=== PATIENT | female | born 1950 | race Caucasian/White ===

== ENCOUNTER 2019-05-28 10:42 | Emergency (ER) | payer SELFPAY ==
[2019-05-28] VITALS (15 sets, daily range): BP systolic 156–191; BP diastolic 76–94; PULSE 72–82; RESP 12–19; TEMP 36.6; O2SAT 95–100; BMI 38.7
--- NOTE | 2019-05-28 10:54 | DI.CT.S_ITS ---
PROCEDURE: CT HEAD/BRAIN WO CON INDICATIONS: possible stroke, TPA candidate TECHNIQUE: Noncontrast 4.5 mm thick angled axial sections acquired from the foramen magnum to the vertex, with coronal and sagittal reformats. For radiation dose reduction, the following was used: automated exposure control, adjustment of mA and/or kV according to patient size. COMPARISON: [facility], CT, CT ANGIO HEAD AND NECK, 05/28/2019, 10:59. FINDINGS: Image quality: Excellent. CSF spaces: Basal cisterns are patent. No extra-axial fluid collections. The ventricles are symmetric in size and shape. Brain: No intracranial bleeds or masses. There is cerebral volume loss for age, with resultant ventricular and sulcal prominence. There are periventricular and deep white matter chronic small vessel ischemic changes. There is intracranial internal carotid artery atherosclerosis. Skull and face: Calvarium and visualized facial bones appear intact, without suspicious lesions. Sinuses: Visualized sinuses and mastoids are clear. IMPRESSION: No acute intracranial hemorrhage is seen. No contraindication to TPA can be seen. No acute intracranial process is seen. Note: These findings discussed by telephone between Dr. Sliva and Dr. Araiza and 11:29 AM [place] time on May 28, 2019. Dictated by: Marco A Moyer M.D. on 05/28/2019 at 10:39 Approved by: Marco A Moyer M.D. on 05/28/2019 at 10:41
--- NOTE | 2019-05-28 10:56 | ED_ITS ---
HPI - Neuro Symptoms/Deficit General Chief Complaint: Neuro Symptoms/Deficit Stated Complaint: PT having a stroke Time Seen by Provider: 05/28/19 10:54 Source: patient Mode of arrival: Ambulatory Limitations: no limitations History of Present Illness HPI Narrative: Patient is a 69-year-old female who presents with left arm weakness which started 20 minutes prior to arrival. She knows that her left arm was not working as it should, she took a counter. They decided to come to the emergency department. She continues to left arm weakness she can move her shoulder but elbow down is a 3 week. He has no speech difficulty or vision loss. Known prior history of TIA or CVA she states that she only takes vitamins. Related Data Home Medications Medication Instructions Recorded Confirmed cholecalciferol (vitamin D3) 1 tab PO QDAY #0 05/26/17 [Vitamin D3] multivitamin [Multiple Vitamins] 1 tab PO QDAY #0 05/26/17 omega 3-fxk-fjs-fish oil [Fish Oil] 1,000 mg PO #0 05/26/17 Previous Rx's Medication Instructions Recorded amoxicillin-pot clavulanate 875 mg PO BID #20 tab 05/26/17 [Augmentin] codeine-guaifenesin 5 ml PO QHS #60 ml 05/26/17 azithromycin [Zithromax] 250 mg PO SEE INSTRUCTIONS #1 pac 05/27/17 Allergies Allergy/AdvReac Type Severity Reaction Status Date / Time amoxicillin [From AUGMENTIN] Allergy Unknown rash Verified 05/28/19 14:26 Antihistamines - Piperidine Allergy Unknown Verified 05/28/19 14:26 [ANTIHISTAMINES - PIPERIDINE] clavulanic acid Allergy Unknown rash Verified 05/28/19 14:26 [From AUGMENTIN] Review of Systems Review of Systems ROS Unobtainable: All systems reviewed & are unremarkable except as noted in HPI and below Constitutional Constitutional: Denies chills, Denies fever(s), Denies lethargy and Reports weakness ENT Ears, Nose, Mouth, and Throat: Denies change in voice, Denies neck pain and Denies sore throat Cardiovascular Cardiovascular: Denies chest pain, Denies irregular heart rhythm, Denies lightheadedness, Denies palpitations, Denies dyspnea, Denies dyspnea on exertion and Denies orthopnea Respiratory Respiratory: Denies cough, Denies dyspnea, Denies dyspnea on exertion and Denies wheezing Gastrointestinal Gastrointestinal: Denies abdominal pain, Denies change in bowel habits, Denies diarrhea, Denies nausea and Denies vomiting Genitourinary Genitourinary: Denies hematuria, Denies flank pain, Denies urinary incontinence and Denies urinary urgency Musculoskeletal Musculoskeletal: Denies neck pain Integumentary/Breasts Skin/Breast: Denies pruritus, Denies erythema, Denies rash and Denies wounds Neurologic Neurologic: Reports as per HPI and Reports weakness Endocrine Endocrine: Denies palpitations Allergic/Immunologic Allergic/Immunologic: Denies wheezing Patient History Medical History Patient denies significant medical history (Acute) Social History marital status: household members: spouse Smoking Status: Never smoker Exam Initial Vital Signs Initial Vital Signs: Vital Signs Temperature 97.9 F 05/28/19 10:42 Respiratory Rate 14 05/28/19 10:42 Pulse Oximetry 99 05/28/19 10:42 GENERAL: Alert pleasant female no acute distress HEENT: Head atraumatic,EOMI, pupils reactive, very slight facial droop left side CARDIOVASCULAR: Regular rate and rhythm without murmurs, rubs or gallops. RESPIRATORY: Breath sounds equal bilaterally, no wheezes rales or rhonchi. ABDOMEN: Soft, nontender. Normoactive bowel sounds all 4 quadrants. No gua rding or rebound. EXTREMITIES: Normal range of motion, no clubbing or edema. Neurovascularly intact NEUROLOGICAL: Alert and oriented x4.Normal gait and speech. Cranial nerves II through XII grossly intact. Left arm weakness-able to move shoulder but it is very unsteady it does drift down it does not hit the bed able to hold it for 10 seconds. Is not able to do finger to nose without left arm. Right arm is of good strength able to do finger to nose. Good lower extremity strength no aphasia or dysarthria noted. She has some mild left nasal fold flattening SKIN: Warm, dry, no laceration, no petechiae, no rashes or lesions. Scores NIH Stroke Scale Level of Conciousness: Alert, keenly responsive Ask month/age: Answers both questions correctly. Open/close eyes, close hand: Performs both tasks correctly Best gaze horizontal: Normal Visual michel: No visual loss Facial palsy: Minor paralysis, flattened nasolabial fold, asymmetry on smiling Left arm drift: Drifts down, not to bed Right arm drift: No drift for full 10 sec Left leg drift: No drift for full 10 sec Right leg drift: No drift for full 10 sec Limb ataxia: Present in one limb Sensory on face/arms/legs: Normal, no sensory loss Best language: No aphasia, normal Dysarthria: Normal Extinction or inattention: No abnormality Total NIH Stroke scale score: 3 Course Orders Ordered: ED Orders 05/28/19 10:52 Complete Blood Count AUTO DIFF Stat Comprehensive Metabolic Panel Stat Partial Thromboplastin Time Stat Prothrombin Time INR Stat Troponin I Stat 05/28/19 10:54 CT angio head and neck Stat CT head/brain wo con Stat EKG-12 Lead Stat 05/28/19 11:54 Urine Drug Screen, Rapid Stat Discontinued Medications Alteplase, Recombinant (Activase) 90 mg IV NOW ONE Stop: 05/28/19 11:46 Last Admin: 05/28/19 11:56 Dose: 90 mg Documented by: BTONER Sodium Chloride (Normal Saline 0.9%) 1,000 mls @ 150 mls/hr IV CONT BRIAN Last Infusion: 05/28/19 14:26 Dose: 0 mls/hr Documented by: Infusion: 05/28/19 14:19 Dose: 150 mls/hr Documented by: Admin: 05/28/19 11:55 Dose: 150 mls/hr Documented by: BTONER Labetalol HCl (Trandate) 5 mg IV NOW ONE Stop: 05/28/19 12:06 Last Admin: 05/28/19 12:08 Dose: 5 mg Documented by: BTONER Reevaluation(s) Reevaluation #1: The patient now able to give thumbs up with her left thumb which she was previously unable to do blood pressure remains controlled overall symptoms improving waiting for bed at [facility] Time: 13:04 Consultations Consultation #1: Neurology at [facility] has been updated patient's symptoms test results. Images pushed his agrees with tPA understands patient will need to be transferred Time: 11:26 Consultation #2: Dr. Howard, hospitalist at [facility] has been updated on patient's symptoms and test results. Except for transfer Time: 12:30 Vital Signs Vital signs: Vital Signs - 8 hr 05/28/19 10:42 05/28/19 11:23 05/28/19 11:50 Temperature 97.9 F Pulse Rate 77 Respiratory Rate 14 14 Blood Pressure Blood Pressure [Left Arm] 176/94 H Blood Pressure [Right Arm] Pulse Oximetry 99 97 05/28/19 12:08 05/28/19 12:10 05/28/19 12:12 Temperature Pulse Rate 75 78 75 Respiratory Rate 12 12 Blood Pressure 191/86 H Blood Pressure [Left Arm] 166/82 H 169/82 H Blood Pressure [Right Arm] Pulse Oximetry 96 95 05/28/19 12:16 05/28/19 12:23 05/28/19 12:36 Temperature Pulse Rate 72 74 75 Respiratory Rate 16 16 19 Blood Pressure 165/83 H Blood Pressure [Left Arm] Blood Pressure [Right Arm] 188/82 H 165/83 H 157/76 H Pulse Oximetry 98 98 97 05/28/19 12:43 05/28/19 12:45 05/28/19 13:00 Temperature Pulse Rate 75 72 75 Respiratory Rate 16 18 18 Blood Pressure Blood Pressure [Left Arm] Blood Pressure [Right Arm] 158/76 H 158/82 H 161/78 H Pulse Oximetry 97 100 98 05/28/19 13:15 05/28/19 13:30 05/28/19 13:45 Temperature Pulse Rate 80 77 79 Respiratory Rate 16 18 16 Blood Pressure Blood Pressure [Left Arm] Blood Pressure [Right Arm] 158/78 H 162/80 H 156/78 H Pulse Oximetry 97 97 96 MDM - Neuro Symptoms/Deficit Lab Data Attestation: I reviewed the patient's lab results. Result diagrams: 05/28/19 10:52 05/28/19 10:52 Labs: Lab Results 05/28/19 05/28/19 05/28/19 Range/Units 10:52 10:52 10:52 WBC 5.2 (4.5-11.0) X10^3/uL RBC 4.61 (4.0-5.2) X10^6/uL Hgb 14.1 (12.0-16.0) g/dL Hct 42.2 (36-46) % MCV 91.5 (80-100) fL MCH 30.7 (26-34) PG MCHC 33.6 (30-36) % RDW 13.6 (11.6-14.8) % Plt Count 166 (150-400) X10^3/uL Neut % (Auto) 53.8 (50-75) % Lymph % (Auto) 35.2 (25-40) % [place] % (Auto) 8.7 (3-14) % Eos % (Auto) 1.5 L (2-4) % Baso % (Auto) 0.8 (0-2) % Neut # (Auto) 2800 (7092-8533) /uL Lymph # (Auto) 1800 (9888-1530) /uL [place] # (Auto) 500 (0-900) /uL Eos # (Auto) 100 (0-450) /uL Baso # (Auto) 0 (0-100) /uL PT 10.8 (10.1-12.7) SECONDS INR 0.9 (0.9-1.3) APTT 32 (26.4-36.2) SECONDS Sodium 137 (137-145) mmol/L Potassium 3.9 (3.4-5.1) mmol/L Chloride 104 (98-107) mmol/L Carbon Dioxide 26 (22-32) mmol/L BUN 14 (7-17) mg/dL Creatinine 0.60 (0.52-1.04) mg/dL Estimated GFR > 60.0 (>60) mL/min BUN/Creatinine Ratio 23.3 H (6-22) Glucose 99 (80-110) mg/dL Calcium 9.6 (8.4-10.2) mg/dL Total Bilirubin 0.8 (0.2-1.3) mg/dL AST 35 (14-36) IU/L ALT 28 (<35) IU/L Alkaline Phosphatase 60 (38-126) U/L Troponin I < 0.012 (0.01-0.034) ng/mL Total Protein 7.6 (6.3-8.2) g/dL Albumin 4.4 (3.5-5.0) g/dL Globulin 3.2 (1.7-4.1) g/dL Albumin/Globulin Ratio 1.4 (1.0-2.8) U Morph 300 ng/mL cutoff (Negative) Ur Oxycodone Screen (Negative) Urine Methadone Screen (Negative) Ur Barbiturates Screen (Negative) U Tricyclic Antidepress (Negative) Ur Phencyclidine Scrn (Negative) Ur Amphetamines Screen (Negative) U Methamphetamines Scrn (Negative) Ur MDMA Scrn (Ecstasy) (Negative) U Benzodiazepines Scrn (Negative) Urine Cocaine Screen (Negative) U Marijuana (THC) Screen (Negative) 05/28/19 Range/Units 11:54 WBC (4.5-11.0) X10^3/uL RBC (4.0-5.2) X10^6/uL Hgb (12.0-16.0) g/dL Hct (36-46) % MCV (80-100) fL MCH (26-34) PG MCHC (30-36) % RDW (11.6-14.8) % Plt Count (150-400) X10^3/uL Neut % (Auto) (50-75) % Lymph % (Auto) (25-40) % [place] % (Auto) (3-14) % Eos % (Auto) (2-4) % Baso % (Auto) (0-2) % Neut # (Auto) (5250-0443) /uL Lymph # (Auto) (0688-7985) /uL [place] # (Auto) (0-900) /uL Eos # (Auto) (0-450) /uL Baso # (Auto) (0-100) /uL PT (10.1-12.7) SECONDS INR (0.9-1.3) APTT (26.4-36.2) SECONDS Sodium (137-145) mmol/L Potassium (3.4-5.1) mmol/L Chloride (98-107) mmol/L Carbon Dioxide (22-32) mmol/L BUN (7-17) mg/dL Creatinine (0.52-1.04) mg/dL Estimated GFR (>60) mL/min BUN/Creatinine Ratio (6-22) Glucose (80-110) mg/dL Calcium (8.4-10.2) mg/dL Total Bilirubin (0.2-1.3) mg/dL AST (14-36) IU/L ALT (<35) IU/L Alkaline Phosphatase (38-126) U/L Troponin I (0.01-0.034) ng/mL Total Protein (6.3-8.2) g/dL Albumin (3.5-5.0) g/dL Globulin (1.7-4.1) g/dL Albumin/Globulin Ratio (1.0-2.8) U Morph 300 ng/mL cutoff Negative (Negative) Ur Oxycodone Screen Negative (Negative) Urine Methadone Screen Negative (Negative) Ur Barbiturates Screen Negative (Negative) U Tricyclic Antidepress Negative (Negative) Ur Phencyclidine Scrn Negative (Negative) Ur Amphetamines Screen Negative (Negative) U Methamphetamines Scrn Negative (Negative) Ur MDMA Scrn (Ecstasy) Negative (Negative) U Benzodiazepines Scrn Negative (Negative) Urine Cocaine Screen Negative (Negative) U Marijuana (THC) Screen Negative (Negative) Point of Care Testing Glucose POC 81 Urine Dip Bedside Urine Glucose Negative Bedside Urine Bilirubin - Negative Bedside Urine Ketone - Negative Urine Specific [place] 1.005 Bedside Urine Occult Blood - Negative Bedside Urine pH 6.0 Bedside Urine Protein - Negative Bedside Urine Urobilinogen - Negative Bedside Urine Nitrite - Negative Bedside Urine Leukocytes - Negative Esterase Imaging Data CT angio head and neck: Radiologist's impression: PROCEDURE: CT ANGIO HEAD AND NECK INDICATIONS: can't move left arm, stroke symptoms, TPA candidate TECHNIQUE: Pre-contrast images were not repeated. After the administration of intravenous contrast, 1 mm thick sections acquired from the aortic arch through the [place]. Post-contrast 4.5 mm thick sections then re-acquired from the foramen magnum to the vertex. 3-dimensional dtskhkj-fpfimlkny-qlcttglyig (MIP) and/or volume renderi ng reformats were acquired of the central intracranial vasculature and neck separately. COMPARISON: [facility], CT, CT HEAD/BRAIN WO CON, 05/28/2019, 10:45. FINDINGS: Image quality: Excellent. BRAIN: CSF spaces: Ventricles are normal in size and shape. Basal cisterns are paten t. No extra-axial fluid collections. Brain: No midline shift. No intracranial bleeds or masses. Garcia-white matter interface appears intact. Skull and face: Calvarium and facial bones appear intact, without suspicious lesions. Orbits appear normal. Incidental note is made of hyperostosis frontalis. This is not considered to be pathologic in a woman of this age. Sinuses: Sinuses and mastoids are clear. HEAD CT ANGIOGRAPHY: Anterior circulation: Intracranial internal carotid arteries are normal in size and flow. The flow within the paired anterior cerebral arteries is normal and symmetric. The flow within the middle cerebral arteries is normal and symmetric. The anterior communicating artery is seen. No aneurysms are seen. Posterior circulation: Visualized portions of the vertebral arteries demonstrate normal caliber, and join to form a normal appearing basilar artery. Flow within the posterior cerebral arteries is normal and symmetric. No aneurysms are seen. NECK CT ANGIOGRAPHY: Carotid system: The great vessels demonstrate a conventional anatomy as they arise from the aortic arch. The origins of the common carotid arteries appear patent. The common carotid arteries demonstrate normal caliber and courses. The bifurcation mendez ons demonstrate atherosclerotic irregularity and calcification. There is approximately 50% stenosis seen involving the left proximal internal carotid artery. There is 60- 70% stenosis seen involving the origin of the right internal carotid artery. Posterior circulation: The origins of the vertebral arteries both appear widely patent. The more superior extracranial portions of both vertebral arteries also demonstrate normal courses and calibers. They join to form a normal appearing basilar artery. Soft tissues: Visualized neck soft tissues demonstrate no suspicious abnormalities. Bones: No suspicious bony lesions. Visualized cervical spine appears normally aligned. IMPRESSION: Stenoses can be seen involving the proximal internal carotid arteries, right worse than left. No significant intracranial arterial abnormality is detected. No abnormal intracranial enhancement is seen. Any quantitative measurements of stenosis were performed using NASCET criteria. Dictated by: Marco A Moyer M.D. on 05/28/2019 at 10:41 ECG Data Attestation: I personally reviewed and interpreted this ECG as follows: Prior ECG tracings: not available for review Interpretation: Normal sinus rhythm rate [address] elevations depressions or T- wave inversion. P.r. interval 192 QRS 105 QTC 416 no priors to compare MDM Narrative Medical decision making narrative: Patient asked about tPA actually prior to my bringing it up. She is a candidate for tPA discuss this with Neurology. I have discussed risks and benefits with both and patient. Both are agreeable, did understand they will need to be transferred to [facility]. At immediately after tPA bolus patient became crying upset and very emotional. Blood pressure the 190s. Slow deep coming breath blood pressure is decreasing slowly, however labetalol ordered. The patient show significant improvement with tPA blood pressure improved as well. Critical Care Time Critical Care Time Critical Care Time: Yes Total Critical Care Time: 45 Attestation: The high probability of a clinically significant, sudden or life threatening deterioration of the neurovascular system(s) required my full and direct attention, intervention and personal management. The aggregate critical care time was [45] minutes. This time is in addition to time spent performing reported procedures but includes the following: [x] Data Review and interpretation [x] Patient assessment and monitoring of vital signs [x] Documentation [x] Medication orders and management Discharge Plan Departure Patient Disposition: [facility] Clinical Impression: Cerebrovascular accident Qualifiers: CVA mechanism: unspecified Qualified Code(s): I63.9 - Cerebral infarction, unspecified Discharge Date/Time: 05/28/19 14:36 Prescriptions: No Action cholecalciferol (vitamin D3) [Vitamin D3] 2,000 UNIT tablet 1 tab PO QDAY Qty: 0 RF: 0 omega 0-msd-zyw-fish oil [Fish Oil] 1,000 MG capsule 1,000 mg PO Qty: 0 RF: 0 multivitamin [Multiple Vitamins] 1 EACH tablet 1 tab PO QDAY Qty: 0 RF: 0 codeine-guaifenesin 100 MG/10 MG liquid 5 ml PO QHS Qty: 60 RF: 0 amoxicillin-pot clavulanate [Augmentin] 875 MG/125 MG tablet 875 mg PO BID Qty: 20 RF: 0 azithromycin [Zithromax] 250 MG tablet 250 mg PO SEE INSTRUCTIONS Qty: 1 RF: 0
[2019-05-28 11:05] LABS: Add Manual Diff / Slide Review NO; Basophils Absolute Auto 0 /uL (0-100); Basophils Percent Auto 0.8 % (0-2); Eosinophils Absolute Auto 100 /uL (0-450); Eosinophils Percent Auto 1.5 % (2-4); Hematocrit 42.2 % (36-46); Hemoglobin 14.1 g/dL (12.0-16.0); Lymphocytes Absolute Auto 1800 /uL (1100-4500); Lymphocytes Percent Auto 35.2 % (25-40); Mean Corpuscular HGB Conc 33.6 % (30-36); Mean Corpuscular Hemoglobin 30.7 PG (26-34); Mean Corpuscular Volume 91.5 fL (80-100); Monocytes Absolute Auto 500 /uL (0-900); Monocytes Percent Auto 8.7 % (3-14); Neutrophils Absolute Auto 2800 /uL (1500-7000); Neutrophils Percent Auto 53.8 % (50-75); Platelet Count 166 X10^3/uL (150-400); Red Blood Cell Count 4.61 X10^6/uL (4.0-5.2); Red Cell Distribution Width 13.6 % (11.6-14.8); White Blood Cell Count 5.2 X10^3/uL (4.5-11.0)
[2019-05-28 11:17] LABS: INR 0.9 (0.9-1.3); Prothrombin Time 10.8 SECONDS (10.1-12.7)
[2019-05-28 11:20] LABS: PTT Partial Thromboplastin Tim 32 SECONDS (26.4-36.2)
[2019-05-28 11:24] LABS: Alanine Aminotransferase 28 IU/L (<35); Albumin 4.4 g/dL (3.5-5.0); Albumin Globulin Ratio 1.4 (1.0-2.8); Alkaline Phosphatase 60 U/L (38-126); Aspartate Aminotransferase 35 IU/L (14-36); BUN Creatinine Ratio 23.3 (6-22); Bilirubin Total 0.8 mg/dL (0.2-1.3); Blood Urea Nitrogen 14 mg/dL (7-17); Calcium 9.6 mg/dL (8.4-10.2); Carbon Dioxide 26 mmol/L (22-32); Chloride 104 mmol/L (98-107); Estimated Glomerular Filt Rate > 60.0 mL/min (>60); Globulin 3.2 g/dL (1.7-4.1); Glucose 99 mg/dL (80-110); HEMOLYSIS 30 (0-50); Potassium 3.9 mmol/L (3.4-5.1); Sodium 137 mmol/L (137-145); Total Protein 7.6 g/dL (6.3-8.2)
[2019-05-28 11:34] LABS: Troponin I < 0.012 ng/mL (0.01-0.034)
--- NOTE | 2019-05-28 11:34 | PC.NURSE ---
dr. guzman is discussing tpa infusion. consent signed.
[2019-05-28] MEDS: SODIUM CHLORIDE 0.9% 1,000 ML 150 ML IV (11:55)
[2019-05-28] MEDS: ALTEPLASE 100 MG VIAL 90 MG IV (11:56)
[2019-05-28 12:00] LABS: UR Morphine/Opiate cutoff 300 Negative (Negative); Ur Creatinine Normal (Normal); Ur Specific Gravity Normal (Normal); Urine Amphetamines Negative (Negative); Urine Barbiturates Negative (Negative); Urine Benzodiazepines Negative (Negative); Urine Cocaine Negative (Negative); Urine MDMA Negative (Negative); Urine Methadone Negative (Negative); Urine Methamphetamines Negative (Negative); Urine Oxycodone Negative (Negative); Urine Phencyclidine Negative (Negative); Urine Tetrahydrocannabinol Negative (Negative); Urine Tricyclic Antidepressant Negative (Negative); Urine pH Normal (Normal)
[2019-05-28] MEDS: LABETALOL 20 MG/4 ML SYRINGE 5 MG IV (12:08)
--- NOTE | 2019-05-28 12:13 | PC.NURSE ---
Ld Rodas to verify activase iv pump program and dose.
--- NOTE | 2019-05-28 12:28 | PC.NURSE ---
pt became tearful as i was giving the iv bolus. pt bp up to 199/115, did not start the infusion, reported to dr. guzman, rec'd orders, noted. pt pressure 166/82 at 1210, started the activase/tpa infusion.
--- NOTE | 2019-05-28 12:58 | PC.NURSE ---
pt moving her left arm, flexing her fingers and thumb. pt has improvement with left a weak facing baster to left hand.
--- NOTE | 2019-05-28 13:17 | PC.NURSE ---
pt tpa/alteplase has completed. NIH scale 0.
--- NOTE | 2019-05-28 13:49 | PC.NURSE ---
pt spouse signed form for traveling via ambulance to [facility]. pt is moving left arm and hand freely.
== END 2019-05-28 14:36 | disposition short-term general hospital (02) ==
PROVIDERS: Emergency Provider Emergency Medicine
DX: I63.9 Cerebral infarction, unspecified (principal); I10 Essential (primary) hypertension
CPT/HCPCS: 36415; 70450; 70496; 70498; 80053; 80305; 81003; 82962; 84484; 85025; 85610; 85730; 93005; 93041; 96361; 96374; 96375; 99285; 99291; 99292; J2997